=== PATIENT | male | born 1990 | race African-American/Black ===

== ENCOUNTER 2024-10-07 04:34 | Observation (INO) | payer OTHER ==
[2024-10-07] MEDS ORDERED: HYDROmorphone HCl 2 MG/ML VIAL ONE ×4 (05:09→15:34)
[2024-10-07 05:10] LABS: VENOUS BASE EXCESS -0.3 mmol/L (-2-2); VENOUS O2 SATURATION 50.7 % (70-80); VENOUS PCO2 51.7 mmHg (38-52); VENOUS PH 7.322 (7.310-7.410)
[2024-10-07] MEDS: HYDROmorphone HCl 2 MG/ML VIAL IVPUSH ONE ×2 (05:12→07:57)
[2024-10-07 05:15] LABS: BASO % 0.8 % (0-2.0); EOS % 1.1 % (0-4.5); HEMATOCRIT 26.5 % (35.4-49); HEMOGLOBIN 8.7 GM/dL (11.7-16.9); LYMPH % 26.5 % (8-40); MCH 27.3 pg (25.7-33.7); MCHC 32.6 g/dl (32.0-35.9); MEAN CELL VOLUME 83.7 fl (80-96); MEAN PLT VOLUME 7.8 fl (7.5-11.1); MONO % 5.6 % (3.8-10.2); PLATELET COUNT 305 10^3/uL (134-434); RBC 3.17 M/mm3 (4.00-5.60); RDW 21.3 % (11.9-15.9); WHITE BLOOD COUNT 19.4 K/mm3 (4.0-10.0)
[2024-10-07 05:48] LABS: CALCIUM 9.5 mg/dL (8.5-10.1)
[2024-10-07 05:49] LABS: ALBUMIN 4.1 g/dl (3.4-5.0)
[2024-10-07 05:51] LABS: ACTIVATED PTT 30.2 SECONDS (25.2-36.5); INR 1.03 (0.83-1.09); PROTHROMBIN TIME (PATIENT) 11.6 SEC (9.7-13.0)
[2024-10-07 05:52] LABS: CREATININE 0.8 mg/dL (0.55-1.3)
[2024-10-07 05:53] LABS: BILIRUBIN,TOTAL 2.9 mg/dL (0.2-1); TOT PROT 7.9 g/dl (6.4-8.2)
[2024-10-07] MEDS ORDERED: POTASSIUM CHLORIDE ORAL LIQUID 20 MEQ/15 ML ONE (05:55)
[2024-10-07] MEDS ORDERED: MAGNESIUM 1GM/D5W - 1 GM/100 ML IVPB IVPB ONE (05:56)
[2024-10-07] MEDS ORDERED: KETOROLAC TROMETHAMINE 15 MG/ML VIAL ONE ×3 (06:14→13:32)
[2024-10-07] MEDS: POTASSIUM CHLORIDE ORAL LIQUID 20 MEQ/15 ML PO ONE (06:14)
[2024-10-07] MEDS: MAGNESIUM 1GM/D5W - 1 GM/100 ML IVPB IVPB ONE (06:14)
[2024-10-07] MEDS: KETOROLAC TROMETHAMINE 15 MG/ML VIAL IVPUSH ONE ×2 (06:14→10:47)
[2024-10-07 06:57] LABS: MAGNESIUM 1.9 mg/dL (1.8-2.4)
[2024-10-07] MEDS ORDERED: CEFTRIAXONE 1 G/50 ML PREMIX 50 ML IVPB ONE (07:23)
[2024-10-07] MEDS ORDERED: AZITHROMYCIN IVPB 500 MG/250 ML BAG IVPB ONE (07:24)
[2024-10-07 07:31] LABS: ANISOCYTOSIS 2+; CORRECTED WBC 17.32 K/mm3; MACROCYTOSIS 0
[2024-10-07] MEDS: CEFTRIAXONE 1 GM in DEXTROSE 5%-WATER - 100 ML IVPB ONE (07:33)
[2024-10-07] MEDS: AZITHROMYCIN IVPB 500 MG in DEXTROSE 5%-WATER - 250 ML IVPB ONE (08:30)
[2024-10-07 09:29] LABS: BILIRUBIN,DIRECT 0.5 mg/dL (0.0-0.2)
[2024-10-07 09:30] LABS: PHOSPHOROUS 3.5 mg/dL (2.5-4.9)
[2024-10-07] MEDS ORDERED: HYDROmorphone HCl 2 MG/ML VIAL IVPUSH PRN (10:00)
[2024-10-07] MEDS ORDERED: ACETAMINOPHEN INJECTION 100 ML ONE (10:38)
[2024-10-07] MEDS: HYDROmorphone HCl 2 MG/ML VIAL IVPUSH PRN (10:48)
[2024-10-07] MEDS: HYDROXYUREA 500 MG CAPSULE PO SCH (11:00)
[2024-10-07] MEDS ORDERED: KETOROLAC TROMETHAMINE 30 MG/1 ML VIAL IVPUSH SCH (11:00)
[2024-10-07] MEDS ORDERED: KETOROLAC TROMETHAMINE 15 MG/ML VIAL IVPUSH SCH (11:00)
[2024-10-07] MEDS: LACTATED RINGERS SOLUTION 1,000 ML/1,000 ML INFUS.BAG IV SCH (11:59)
[2024-10-07] MEDS: KETOROLAC TROMETHAMINE 15 MG/ML VIAL IVPUSH PRN (13:44)
[2024-10-07] MEDS: ACETAMINOPHEN 1000 MG/100 ML BAG IVPB SCH (15:05)
[2024-10-07] MEDS: KETOROLAC TROMETHAMINE 30 MG/1 ML VIAL IM SCH (15:06)
[2024-10-07] MEDS ORDERED: FOLIC ACID 1 MG TABLET (FP) ONE (15:51)
[2024-10-07] MEDS: FOLIC ACID 1 MG TABLET (FP) PO SCH (15:57)
[2024-10-07 17:15] VITALS: BMI 22.0
[2024-10-07] MEDS: ACETAMINOPHEN 1000 MG/100 ML BAG IVPB PRN (17:48)
[2024-10-07] MEDS ORDERED: NALOXONE HCL 0.4 MG/ML VIAL IVPUSH PRN (19:00)
[2024-10-08 08:29] LABS: HEMATOCRIT 26.2 % (35.4-49); HEMOGLOBIN 8.7 GM/dL (11.7-16.9); MCH 27.3 pg (25.7-33.7); MCHC 33.4 g/dl (32.0-35.9); MEAN CELL VOLUME 81.7 fl (80-96); MEAN PLT VOLUME 8.4 fl (7.5-11.1); PLATELET COUNT 219 10^3/uL (134-434); RDW 21.1 % (11.9-15.9); WHITE BLOOD COUNT 8.1 K/mm3 (4.0-10.0)
[2024-10-08 08:35] LABS: POTASSIUM 3.9 mmol/L (3.5-5.1)
[2024-10-08 08:37] LABS: ALBUMIN 3.6 g/dl (3.4-5.0); BLOOD UREA NITROGEN 5.6 mg/dL (7-18); CALCIUM 9.2 mg/dL (8.5-10.1)
[2024-10-08 08:40] LABS: CREATININE 0.6 mg/dL (0.55-1.3)
[2024-10-08 08:42] LABS: BILIRUBIN,TOTAL 2.4 mg/dL (0.2-1); TOT PROT 7.1 g/dl (6.4-8.2)
[2024-10-08] MEDS: ENOXAPARIN NA (PORCINE) 40 MG/0.4 ML DISP.SYRIN SQ SCH (10:36)
[2024-10-08] MEDS: CEFTRIAXONE 1 G/50 ML PREMIX 50 ML IVPB SCH (10:36)
[2024-10-08] MEDS: AZITHROMYCIN IVPB 250 MG in DEXTROSE 5%-WATER - 250 ML IVPB SCH (11:00)
[2024-10-09 04:51] VITALS: RESP 18
[2024-10-09 07:01] LABS: BASO % 1.2 % (0-2.0); EOS % 2.8 % (0-4.5); HEMATOCRIT 25.8 % (35.4-49); HEMOGLOBIN 8.7 GM/dL (11.7-16.9); LYMPH % 18.9 % (8-40); MCH 27.7 pg (25.7-33.7); MCHC 33.7 g/dl (32.0-35.9); MEAN CELL VOLUME 82.2 fl (80-96); MEAN PLT VOLUME 8.3 fl (7.5-11.1); MONO % 8.2 % (3.8-10.2); NEUT % 68.9 % (42.8-82.8); PLATELET COUNT 249 10^3/uL (134-434); RBC 3.14 M/mm3 (4.00-5.60); RDW 20.7 % (11.9-15.9); WHITE BLOOD COUNT 9.1 K/mm3 (4.0-10.0)
[2024-10-09 07:17] LABS: POTASSIUM 4.1 mmol/L (3.5-5.1)
[2024-10-09 07:24] LABS: ALBUMIN 3.5 g/dl (3.4-5.0); BLOOD UREA NITROGEN 4.5 mg/dL (7-18); CALCIUM 9.2 mg/dL (8.5-10.1)
[2024-10-09 07:27] LABS: CREATININE 0.5 mg/dL (0.55-1.3)
[2024-10-09 07:31] LABS: BILIRUBIN,TOTAL 1.9 mg/dL (0.2-1); TOT PROT 7.1 g/dl (6.4-8.2)
[2024-10-09] MEDS: AMOX TR/POT CLAV 875MG/125MG TABLETS (FP) PO SCH (09:25)
[2024-10-09] MEDS: oxyCODONE HCL 5 MG TABLET PO PRN (09:26)
[2024-10-10 06:58] LABS: HEMATOCRIT 25.5 % (35.4-49); HEMOGLOBIN 8.1 GM/dL (11.7-16.9); MCH 26.3 pg (25.7-33.7); MCHC 31.9 g/dl (32.0-35.9); MEAN CELL VOLUME 82.5 fl (80-96); MEAN PLT VOLUME 8.2 fl (7.5-11.1); PLATELET COUNT 268 10^3/uL (134-434); RBC 3.09 M/mm3 (4.00-5.60); RDW 20.1 % (11.9-15.9); WHITE BLOOD COUNT 11.3 K/mm3 (4.0-10.0)
[2024-10-10 07:09] LABS: POTASSIUM 4.4 mmol/L (3.5-5.1)
[2024-10-10 07:13] LABS: ALBUMIN 3.7 g/dl (3.4-5.0); BLOOD UREA NITROGEN 8.8 mg/dL (7-18); CALCIUM 9.6 mg/dL (8.5-10.1)
[2024-10-10 07:16] LABS: BILIRUBIN,DIRECT 0.4 mg/dL (0.0-0.2)
[2024-10-10 07:17] LABS: CREATININE 0.7 mg/dL (0.55-1.3)
[2024-10-10 07:18] LABS: BILIRUBIN,TOTAL 1.8 mg/dL (0.2-1); TOT PROT 7.5 g/dl (6.4-8.2)
[2024-10-10 16:06] VITALS: BP 113/68; PULSE 81; TEMP 98.2
== END 2024-10-10 13:03 | disposition home or self-care (01) ==
LOC: JER 04:34 → JERBED 06:56 → UNDOADMOB 06:56 → INTOOBSV 06:56 → J4W 16:58 → JERBED 16:58 → J4W 10-09 13:26
PROVIDERS: ADMIT Internal Medicine; ATTEND Student in an Organized Health Care Education/Training Program
PROC: 3E03329 Introduction of Other Anti-infective into Peripheral Vein, Percutaneous Approach (ICD-10-PCS; principal; 2024-10-09)
PROC: 3E033NZ Introduction of Analgesics, Hypnotics, Sedatives into Peripheral Vein, Percutaneous Approach (ICD-10-PCS; 2024-10-09)
PROC: 3E033GC Introduction of Other Therapeutic Substance into Peripheral Vein, Percutaneous Approach (ICD-10-PCS; 2024-10-09)
PROC: 3E023GC Introduction of Other Therapeutic Substance into Muscle, Percutaneous Approach (ICD-10-PCS; 2024-10-09)
PROC: 3E0333Z Introduction of Anti-inflammatory into Peripheral Vein, Percutaneous Approach (ICD-10-PCS; 2024-10-09)
PROC: 3E0337Z Introduction of Electrolytic and Water Balance Substance into Peripheral Vein, Percutaneous Approach (ICD-10-PCS; 2024-10-09)
DX: D57.00 Hb-SS disease with crisis, unspecified (principal); D72.829 Elevated white blood cell count, unspecified; R09.02 Hypoxemia; R82.2 Biliuria; K86.9 Disease of pancreas, unspecified; K08.9 Disorder of teeth and supporting structures, unspecified; Z90.49 Acquired absence of other specified parts of digestive tract; Z72.0 Tobacco use
CPT/HCPCS: 36415; 36430; 71045-TC-FY; 71275-TC; 74178-TC; 76705-TC; 80053; 82248; 82803; 83615; 83690; 83735; 84100; 84484; 85025; 85027; 85045; 85610; 85730; 86780; 86850; 86900; 86901; 86922; 87389; 87491; 87529; 87591; 87661; 87899; 93005; 93010; 96361; 96365; 96366; 96368; 96372; 96375; 96376; 99285-25; G0378; J0131; J8999; P9058; Q9967